=== PATIENT | male | born 1995 | race Caucasian/White ===

== ENCOUNTER 2025-01-17 10:23 | Outpatient (AMB) | payer OTHER, SELFPAY ==
--- NOTE | 2025-01-17 10:25 | A.OFFPC_ITS ---
Vital Signs 01/17/25 10:28 Height 5 ft 5.75 in Weight 180 lb 6 oz BMI 29.3 BP 116/78 Blood Pressure Location Lt brachial Position Sitting Respiration 12 Pulse 56 Pulse Source Pulse Oximeter Pulse Oximetry (%) 96 Oxygen Delivery Method Room Air Intake Visit Reasons: Est. Care Allergies No Known Allergies Allergy (Verified 01/17/25 10:27) Medication List - Last Reconciled 01/18/25 by Yennifer Lujan MD albuterol sulfate 90 mcg/actuation (Ventolin HFA) 2 puffs inhalation Q4-6H PRN Dental Screening Dental Screen Date: 01/17/25 Did you have a dental visit in the last 12 months?: Yes Did you have a dental problem in the last 6 months where you did not have access to dental care?: No Was dental information given to patient?: Patient has dentist HPI HPI Comments History of Present Illness Details 29 year old male with past medical histo ry of abnormal tfs presenting to [facility]. Transferring from [facility] Concerns: About 8 months ago did started getting shortness of breath with light activity. Chest getting tight.Denies reflux, heartburn. Denies anxiety. No calf swelling. Feels like cant get a deep breath. He had an abnormal PFTs performed a few years ago. 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 Recently had repeat PFTs with restrictive pattern. Mom has CHF-age 51. Paternal grandfather of [place] in 30s. he has no LE swelling. Is in good shape. Says he had EKG at [facility]. EKG here today is sinus bradycardia. No tobacco use ROS see HPI PHYSICAL EXAM: GENERAL: Alert and oriented x 3. NAD EYES: EOMI. Anicteric. HENT: Moist mucous membranes. No scleral icterus. No cervical lymphadenopathy. LUNGS: Clear to auscultation bilaterally. CARDIOVASCULAR: Regular rate and rhythm. No murmur. No JVD. ABDOMEN: Soft, non-tender +bs EXTREMITIES: No edema. Non-tender. SKIN: No rashes or lesions. Warm. NEUROLOGIC: No focal neurological deficits. CN II-XII grossly intact PSYCHIATRIC: Cooperative. Appropriate mood and affect [facility] Surgical History History of hernia surgery S/P ACL surgery Family History Mother Cardiovascular disease Thyroid disorder Thyroid cancer Maternal Grandfather Prostate cancer Paternal Grandfather Prostate cancer Cardiovascular disease Social History Housing: House Alcohol intake: current Patient Tobacco Use Status: Never used Tobacco service: Yes Current occupational status: employed Current occupation: [employer] Current occupational exposures/hazards: No Cognitive needs: No Hearing needs: No Vision needs: No Questionnaire PHQ-9 Over the last 2 weeks, how often have you been bothered by any of the following problems? 1. Little interest or pleasure in doing things: not at all 2. Feeling down, depressed, or hopeless: not at all 3. Trouble falling or staying asleep, or sleeping too much: not at all 4. Feeling tired or having little energy: not at all 5. Poor appetite or overeating: not at all 6. Feeling bad about yourself - or that you are a failure or have let yourself or your family down: not at all 7. Trouble concentrating on things, such as reading the newspaper or watching television: not at all 8. Moving or speaking so slowly that other people could have noticed. Or the opposite - being so fidgety or restless that you have been moving around a lot more than usual: not at all 9. Thoughts that you would be better off or of hurting yourself in some way: not at all Total score: 0 Depression Screening Interpretation: Negative Depression Screening Done: Yes 21202 - PHQ-9 Billing: Yes Source: Developed by Drs. Emiliano Velez, Payal Smallwood, Edi Lockwood and colleagues, with an educational alexsandra from [employer]. Thrive Questionnaire I am a: Patient What is your living situation today?: I have a steady place to live Within the past 12 months, did the food you bought not last and you didn't have the money to get more?: Never true Within the past 12 months, did you worry whether your food would run out before you got money to buy more?: Never true Do you have trouble paying for medicines?: No Do you have trouble getting transportation to medical appointments?: No Do you have trouble paying your heating and electricity bill?: No Do you have trouble taking care of your child, family member or friend?: No Do you have trouble with day-to-day activities such as bathing, preparing meals, shopping, managing finances, etc.?: No Are you currently unemployed and looking for a job?: No Are you interested in more education?: No Please select the resources that you would like help with: None Currently or been in a relationship where the following occur: No concerns reported THRIVE Score: 0 AUDIT C Alcohol Use Questionnaire (AUDIT-C) 1. How often do you have a drink containing alcohol?: 2-3 times a week 2. How many drinks containing alcohol do you have on a typical day when you are drinking?: 3 or 4 3. How often do you have six or more drinks on one occasion?: Monthly Total Score: 6 VIBHA-7 AMB Questionnaire VIBHA-7 Feeling nervous, anxious, or on edge: 0 = Not at all Not being able to stop or control worryin = Not at all Worrying too much about different things: 0 = Not at all Trouble relaxin = Not at all Being so restless that it is hard to sit still: 0 = Not at all Becoming easily annoyed or irritable: 0 = Not at all Feeling afraid as if something awful might happen: 0 = Not at all Total VIBHA-7 score (0-4 normal; 5-9 mild; 10-14 moderate; 15-21 severe): 0 Source: Developed by Drs. Emiliano Velez, Payal Smallwood, Edi Lockwood and colleagues, with an educational alexsandra from [employer]. Physical exam (Primary Care) Vital Signs: Last Vital Signs Pulse 56 01/17/25 10:28 Resp 12 01/17/25 10:28 BP 116/78 01/17/25 10:28 Pulse Ox 96 01/17/25 10:28 Oxygen Delivery Method Room Air 01/17/25 10:28 BMI result Body Mass Index 29.3 PHQ-9: PHQ-9 Score PHQ-9: Total score 0 01/18/25 14:19 Depression Screening Interpretation: Negative Currently or been in a relationship where the following occur: No concerns reported Coding Level of Care Code New Pt Level 4 (64117) Complex EM visit Add On G2211 Diagnoses Abnormal PFTs R94.2 Exertional dyspnea R06.09 Family history of due to heart problem at age younger than 50 years Z82.41 Additional Codes PHQ-9 - 77267 - PHQ-9 Billing: Yes ([id number]) Assessment & Plan Assessment & Plan (1) Abnormal PFTs: Code(s): R94.2 - Abnormal results of pulmonary function studies Category: Medical (2) Exertional dyspnea: Code(s): R06.09 - Other forms of dyspnea Category: Medical (3) Family history of due to heart problem at age younger than 50 years: Code(s): Z82.41 - Family history of sudden cardiac Category: Medical Plan 29 year old male to establish care Past medical, surgical, social and family history reviewed abnormal pfts, newer shortness of breath and chest pain Refer pulm. CXR ordered Trial albuterol Echo, stress ordered. Orders: Orders CA echo transthoracic complete 01/17/25 R06.09 - Other forms of dyspnea CA stress test 01/17/25 R07.9 - Chest pain, unspecified, Z82.41 - Family history of sudden cardiac Comprehensive Met. Panel 01/17/25 R06.09 - Other forms of dyspnea, Z13.0 - Encounter for screening for diseases of the blood and blood-forming organs and certain disorders involving the immune mechanism, Z13.228 - Encounter for screening for other metabolic disorders CRP High Sensitivity 01/17/25 R06.09 - Other forms of dyspnea, Z13.0 - Encounter for screening for diseases of the blood and blood-forming organs and certain disorders involving the immune mechanism, Z13.228 - Encounter for screening for other metabolic disorders XR chest 2V 01/17/25 R06.09 - Other forms of dyspnea, R94.2 - Abnormal results of pulmonary function studies ECG 12 lead EKG 01/17/25 R07.9 - Chest pain, unspecified Complete Blood Count Auto Diff 01/17/25 R06.09 - Other forms of dyspnea, Z13.0 - Encounter for screening for diseases of the blood and blood-forming organs and certain disorders involving the immune mechanism, Z13.228 - Encounter for screening for other metabolic disorders IRON PROFILE 01/17/25 R06.09 - Other forms of dyspnea, Z13.0 - Encounter for screening for diseases of the blood and blood-forming organs and certain disorders involving the immune mechanism, Z13.228 - Encounter for screening for other metabolic disorders Lipid Panel 01/17/25 R06.09 - Other forms of dyspnea, Z13.0 - Encounter for screening for diseases of the blood and blood-forming organs and certain disorders involving the immune mechanism, Z13.228 - Encounter for screening for other metabolic disorders TSH reflex Free T4 01/17/25 R06.09 - Other forms of dyspnea, Z13.0 - Encounter for screening for diseases of the blood and blood-forming organs and certain disorders involving the immune mechanism, Z13.228 - Encounter for screening for other metabolic disorders Referrals Pulmonology Referral R06.09 - Other forms of dyspnea, R94.2 - Abnormal results of pulmonary function studies Medications: New albuterol sulfate 90 mcg/actuation (Ventolin HFA) 2 puffs inhalation Q4-6H PRN 8.5 grams 3RF shortness of breath or wheezing
[2025-01-17 10:28] VITALS: BP 116/78; PULSE 56; RESP 12; O2SAT 96; BMI 29.3
== END 2025-01-17 11:26 | disposition home or self-care (01) ==
LOC: HO.HMCFM 10:24
PROVIDERS: PCP Internal Medicine; Visit Provider Internal Medicine
DX: R94.2 Abnormal results of pulmonary function studies (principal); R06.09 Other forms of dyspnea; Z82.41 Family history of sudden cardiac death

== ENCOUNTER → 2025-01-17 10:23 | Outpatient (BNVA) | payer OTHER, SELFPAY | PROVIDERS: PCP Internal Medicine; Visit Provider Internal Medicine | DX: R94.2 Abnormal results of pulmonary function studies (principal); R07.9 Chest pain, unspecified; R06.09 Other forms of dyspnea; Z82.41 Family history of sudden cardiac death | CPT/HCPCS: 96127 ==

== ENCOUNTER 2025-01-17 12:05 | Outpatient (REF) | payer OTHER, SELFPAY ==
[2025-01-17 14:59] LABS: MANUAL DIFF FLAG NO
[2025-01-17 15:10] LABS: Basophils Percent Auto 0.4 % (0-2); Eosinophils Absolute Auto 0.1 X10*3/uL (0.0-0.4); Eosinophils Percent Auto 1.4 % (0-4); Hematocrit 46.8 % (42.0-52.0); Hemoglobin 15.8 g/dl (14.0-18.0); Imm Gran Abs Auto 0.02 X10*3/uL (0.00-0.03); Imm Gran Pct Auto 0.4 % (0.0-0.4); Lymphocytes Absolute Auto 1.5 X10*3/uL (1.2-4.9); Lymphocytes Percent Auto 30.5 % (20-40); Mean Corpuscular HGB Conc 33.8 g/dl (31.0-36.0); Mean Corpuscular Hemoglobin 28.8 pg (27.0-33.0); Mean Corpuscular Volume 85.4 fL (80.0-98.0); Mean Platelet Volume 12.7 fL (9.4-12.4); Monocytes Absolute Auto 0.5 X10*3/uL (0.1-1.2); Monocytes Percent Auto 9.4 % (2-11); Neutrophils Absolute Auto 2.9 x10*3/uL (2.0-8.3); Neutrophils Percent Auto 57.9 % (45-73); Platelet Count 177 X10*3/uL (160-400); Red Blood Count 5.48 X10*6/uL (4.60-5.80)
[2025-01-17 17:24] LABS: Alanine Aminotransferase 31 U/L (0-40); Albumin Level 4.7 g/dL (3.5-5.0); Alkaline Phosphatase 68 U/L (39-117); Anion Gap 12 (12-20); Aspartate Amino Transferase 35 U/L (5-37); Bilirubin Total 0.6 mg/dL (0.0-1.0); Blood Urea Nitrogen 14 mg/dL (9-16); Calcium 9.6 mg/dL (8.4-10.2); Carbon Dioxide 28 mmol/L (22-29); Chloride 104 mmol/L (96-108); Cholesterol 198 mg/dL (<200); Estimated Glomerular Filt Rate > 60; Glucose Random 80 mg/dL (60-115); HDL Cholesterol 50 mg/dL (>40); Iron 140 mcg/dL (45-160); LDL Cholesterol Calculated 127 mg/dL (<100); Percent Iron Saturation 41 % (15-50); Potassium 4.2 mmol/L (3.3-5.1); Sodium 140 mmol/L (135-145); Total Iron Binding Capacity 338 mcg/dL (228-428); Total Protein 7.9 g/dL (6.5-8.0); Triglycerides 105 mg/dL (<150); Unsaturated Iron Binding 198 ug/dL
[2025-01-17 17:43] LABS: TSH reflex Free T4 0.61 uIU/mL (0.32-4.0)
[2025-01-18 07:38] LABS: CRP High Sensitivity 0.3 mg/L
== END 2025-01-17 12:06 | disposition home or self-care (01) ==
LOC: HO.WFDLDS 12:05
PROVIDERS: Visit Provider Internal Medicine
DX: R06.09 Other forms of dyspnea (principal); Z13.228 Encounter for screening for other metabolic disorders; Z13.0 Encounter for screening for diseases of the blood and blood-forming organs and certain disorders involving the immune mechanism
CPT/HCPCS: 36415; 80053; 80061; 83540; 84443; 85025; 86141

== ENCOUNTER → 2025-02-11 07:46 | Outpatient (REF) | payer OTHER, SELFPAY ==
--- NOTE | 2025-02-11 07:51 | CA_ITS ---
Transthoracic Echocardiogram Patient (Last, First, Middle): Waldo Hernandez S Gender: Male Date of : 1995 Age: 29 Procedure Date: 02/11/2025 Procedure Type: Transthoracic Echocardiogram Location: OP Height: 167. 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 The calculated ejection fraction is 58% by biplane method. - No obvious valvular pathology seen on this study. Findings Left Ventricle Normal left ventricular cavity size. There is normal left ventricular wall thickness. The left ventricular systolic function is normal. The calculated ejection fraction is 58% by biplane method. There is no evidence of regional wall motion abnormalities. Diastolic function is normal for age. Right Ventricle Mildly increased right ventricular cavity size. There is normal right ventricular systolic function. Atria Both atria are normal in size. Aortic Valve There is a normal trileaflet aortic valve. There is no aortic valve stenosis. There is no aortic valve regurgitation. Mitral Valve The mitral valve appears normal. There is trace mitral valve regurgitation. There is no mitral valve stenosis. Pulmonic Valve The pulmonic valve is likely normal. Tricuspid Valve There is mild tricuspid valve regurgitation. There is no evidence of pulmonary hypertension. Great Vessels The asc aorta and aortic arch are normal in size. Venous The inferior vena cava is normal in size and collapses greater than 50% with inspiration. Pericardium/Pleural There is no evidence of pericardial effusion. Prior Study Comparison No prior study available for comparison. Recommendations, Care & Conclusions No obvious valvular pathology seen on this study. Measurements 2D Linear Measurements IVSd: 0.91 0.6-0.9/0.6-1.0 cm LVIDd: 5.05 3.9-5.3/4.2-5.9 cm LVIDd Index: 2.64 2.4-3.2/2.2-3.1 cm/m2 LVIDs: 3.11 2.0-3.6 cm LVPWd: 0.98 0.7-1.1 cm LA Diam: 3.10 2.7-3.8/3.0-4.0 cm LAIDs Index: 1.62 1.5-2.3 cm/m2 LV Mass: 213.99 67-162/88-224 g LV Mass Index: 112.04 43-95/49-115 g/m2 LVOT Diam: 2.10 3.0+(-)1.3 cm 2D Systolic Function EF 4C: 57.60 >55% EF 2C: 59.40 >55% EF BiP: 57.50 >55% Mitral Valve MV Pk E: 0.94 MV PK A: 0.63 MV Decel Time: 275.00 E/A: 1.50 E'Lateral: 16.10 E'Medial: 11.30 E/E' Med: 8.30 E/E' Lat: 5.80 PHT: 80.00 MVA PHT: 2.75 Decel [place]: 3.41 Aortic Valve AoV Pk [place]: 1.15 AoV Mn [place]: 0.81 AoV VTI: 0.29 AoV Pk Grad: 5.00 Aov Mn Grad: 3.00 FRANCI Cont.VTI: 2.71 LVOT LVOT Pk [place]: 0.95 LVOT Mn [place]: 0.69 LVOT VTI: 0.22 LVOT Pk Grad: 4.00 LVOT Mn Grad: 2.00 LVOT Diam: 2.10 LVOT Area: 3.46 Diastolic Function MV Pk E: 0.94 MV Pk A: 0.63 E/A: 1.50 E'Medial: 11.30 E/E' Med: 8.30 E' Laterial: 16.10 E/E' Lat: 5.80 Right Ventricle TAPSE (mm): 23.50 TVS' [place]: 11.70 Tricuspid Valve TR Pk [place]: 1.83 TR Pk Grad: 13.00 RA Press: 3.00 RVSP: 16.00 Great Vessels Aorta Sinus of Valsalva: 3.50 2.0-3.5 cm Ao Asc: 3.10 2.1-3.4 cm Ao Arch: 2.70 Pulmonary Valve PV Pk [place]: 0.99 Peak PV Grad: 4.00 Updated in Other Vendor System with Status of Final Adalberto Swan MD electronically signed on 02/12/2025 11:37:51 AM with status of Final
--- NOTE | 2025-02-11 07:51 | ECG_ITS ---
Test Reason : R07.9 R06.09 Blood Pressure : */* mmHG Vent. Rate : 54 BPM Atrial Rate : 54 BPM P-R Int : 164 ms QRS Dur : 84 ms QT Int : 418 ms P-R-T Axes : 30 81 29 degrees QTcB Int : 396 ms Sinus bradycardia with sinus arrhythmia Otherwise normal ECG No previous ECGs available Referred By: Yennifer Lujan Electronically Signed By: RAVINDRA JONES
--- NOTE | 2025-02-11 07:51 | CA_ITS ---
Acquisition Time: 2025-02-11 08:47:40 Total Exercise Time: 00:10:56 Test Indications: SOB Medications: SEE H&P Protocol: SARAH Max HR: 166 BPM 86% of Pred: 192 BPM Max BP: 144/70 mmHG Max Work Load: 13.2 METS Exercise stress test with exercise 10 mins 56 secs of Sarah Protocol, achieving 86% MPHR, with reports of mild SOB, no chest pain, with sinus arrythmias in early recovery, with normotensive response to exercise. Without EKG changes meeting criteria for ischemia. In recovery, breathing quickly returned to baseline. Test reviewed with Dr. Swan. Referred By: Yennifer Lujan Electronically Signed By: Juan Francisco Prince
== END ==
LOC: HO.CARD 07:46
PROVIDERS: PCP Internal Medicine; Visit Provider Internal Medicine
DX: R07.9 Chest pain, unspecified (principal); R06.09 Other forms of dyspnea; Z82.41 Family history of sudden cardiac death
CPT/HCPCS: 93005; 93017; 93306

== ENCOUNTER → 2025-02-11 07:51 | Outpatient (BNV) | payer OTHER, SELFPAY | PROVIDERS: PCP Internal Medicine | DX: R06.09 Other forms of dyspnea (principal); I36.1 Nonrheumatic tricuspid (valve) insufficiency | CPT/HCPCS: 93016; 93018; 93320; 93350 ==

== ENCOUNTER 2025-04-25 09:00 | Outpatient (AMB) | payer OTHER, SELFPAY ==
--- NOTE | 2025-04-25 09:26 | MHC.PC.OV ---
Vital Signs 04/25/25 09:28 Height 5 ft 5.7 in Weight 180 lb BMI 29.3 BP 104/68 Blood Pressure Location Rt brachial Position Sitting Respiration 14 Pulse 69 Pulse Source Pulse Oximeter Pulse Oximetry (%) 99 Oxygen Delivery Method Room Air Intake Visit Reasons: f/up testing Intake Note: Follow up stress test and echo. 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 Transferring from [facility] Concerns addressed in December. No interval change About 8 months ago did started getting shortness of breath with light activity. Chest getting tight.Denies reflux, heartburn. Denies anxiety. No calf swelling. Feels like cant get a deep breath. He had an abnormal PFTs performed a few years ago. 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 Recently had repeat PFTs with restrictive pattern. Mom has CHF-age 51. Paternal grandfather of [place] in 30s. he has no LE swelling. Is in good shape. Says he had EKG at [facility]. EKG here today is sinus bradycardia. No tobacco use -Echocardiogram and stress test were completed and normal -He has an appointment this week with pulmonary -He will get his previously ordered chest xray performed today ROS see HPI PHYSICAL EXAM: GENERAL: Alert and oriented x 3. NAD EYES: EOMI. Anicteric. HENT: Moist mucous membranes. No scleral icterus. No cervical lymphadenopathy. LUNGS: Clear to auscultation bilaterally. CARDIOVASCULAR: Regular rate and rhythm. No murmur. No JVD. ABDOMEN: Soft, non-tender +bs EXTREMITIES: No edema. Non-tender. SKIN: No rashes or lesions. Warm. NEUROLOGIC: No focal neurological deficits. CN II-XII grossly intact PSYCHIATRIC: Cooperative. Appropriate mood and affect [facility] Surgical History History of hernia surgery S/P ACL surgery Family History Mother Cardiovascular disease Thyroid disorder Thyroid cancer Maternal Grandfather Prostate cancer Paternal Grandfather Prostate cancer Cardiovascular disease Social History (Updated 07/07/25 @ 09:32 by HUGO Carlin Housing: House Alcohol intake: current Patient Tobacco Use Status: Never used Tobacco e-Cigarette/Vaping Use: Never Used Second Hand Smoke Exposure: No Use of substances other than those prescribed or required for medical reasons: No service: Yes Current occupational status: employed 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 Current occupational exposures/hazards: No Cognitive needs: No Hearing needs: No Vision needs: No Questionnaire Thrive Questionnaire Date Thrive assessed: 01/17/25 I am a: Patient What is your living situation today?: I have a steady place to live Within the past 12 months, did the food you bought not last and you didn't have the money to get more?: Never true Within the past 12 months, did you worry whether your food would run out before you got money to buy more?: Never true Do you have trouble paying for medicines?: No Do you have trouble getting transportation to medical appointments?: No Do you have trouble paying your heating and electricity bill?: No Do you have trouble taking care of your child, family member or friend?: No Do you have trouble with day-to-day activities such as bathing, preparing meals, shopping, managing finances, etc.?: No Are you currently unemployed and looking for a job?: No Are you interested in more education?: No Please select the resources that you would like help with: None Currently or been in a relationship where the following occur: No concerns reported THRIVE Score: 0 AUDIT C Alcohol Use Questionnaire (AUDIT-C) 1. How often do you have a drink containing alcohol?: Monthly or less 2. How many drinks containing alcohol do you have on a typical day when you are drinking?: 1 or 2 3. How often do you have six or more drinks on one occasion?: Never Total Score: 1 Physical exam (Primary Care) Vital Signs: Last Vital Signs Pulse 69 04/25/25 09:28 Resp 14 04/25/25 09:28 BP 104/68 04/25/25 09:28 Pulse Ox 99 04/25/25 09:28 Oxygen Delivery Method Room Air 04/25/25 09:28 BMI result Body Mass Index 29.3 Tobacco/Smoking Status: Tobacco use Status Tobacco use date assessed 04/25/25 04/25/25 09:32 Patient Tobacco Use Status Never used Tobacco 04/25/25 09:32 e-Cigarette/Vaping Use Never Used 04/25/25 09:32 Thrive Assessment: Date of Thrive Assessment Date Thrive assessed 01/17/25 04/25/25 09:31 Currently or been in a relationship where the following occur: No concerns reported Coding Level of Care Code Est Pt Level 3 (43209) Complex EM visit Add On G2211 Diagnoses Exertional dyspnea R06.09 Abnormal PFTs R94.2 Assessment & Plan Assessment & Plan (1) Exertional dyspnea: Code(s): R06.09 - Other forms of dyspnea Category: Medical (2) Abnormal PFTs: Code(s): R94.2 - Abnormal results of pulmonary function studies Category: Medical Plan Exertional dypsnea, abnormal PFTs Xray today Pulmonary visit this week Reviewed cardiac testing
[2025-04-25 09:28] VITALS: BP 104/68; PULSE 69; RESP 14; O2SAT 99; BMI 29.3
== END 2025-04-25 09:46 | disposition home or self-care (01) ==
LOC: HO.HMCFM 09:01
PROVIDERS: PCP Internal Medicine; Visit Provider Internal Medicine
DX: R06.09 Other forms of dyspnea (principal); R94.2 Abnormal results of pulmonary function studies

== ENCOUNTER 2025-04-25 09:00 | Outpatient (REF) | payer OTHER, SELFPAY ==
--- NOTE | ~2025-04-25 | XR_ITS ---
EXAMINATION: XR CHEST CLINICAL INFORMATION: R06.09 - Other forms of dyspnea COMPARISON: 03/07/2021, 12/27/2019. TECHNIQUE: 2 views of the chest were obtained. FINDINGS: The cardiac, hilar, and mediastinal contours are normal. The lungs are clear bilaterally. There is no pneumothorax or pleural effusion. There is no focal osseous or soft tissue abnormality. XR/XR chest 2V IMPRESSION: No active pulmonary disease. Electronically signed by: Manpreet Nuñez MD 04/25/2025 11:28 AM EDT
== END 2025-04-25 09:01 | disposition home or self-care (01) ==
LOC: HO.XRAY 09:00
PROVIDERS: PCP Internal Medicine; Visit Provider Internal Medicine
DX: R94.2 Abnormal results of pulmonary function studies (principal); R06.09 Other forms of dyspnea
CPT/HCPCS: 71046

== ENCOUNTER → 2025-04-25 10:21 | Outpatient (BNV) | payer OTHER, SELFPAY | PROVIDERS: PCP Internal Medicine; Visit Provider Radiology Diagnostic Radiology | DX: R06.09 Other forms of dyspnea (principal) | CPT/HCPCS: 71046 ==

== ENCOUNTER 2025-04-27 13:10 | Outpatient (AMB) | payer OTHER, SELFPAY ==
--- NOTE | 2025-04-27 13:12 | MHC.OFFVIS ---
Vital Signs 04/27/25 13:13 Height 5 ft 5.7 in Weight 181 lb 6 oz BMI 29.5 BP 110/52 L Blood Pressure Location Rt brachial Position Sitting Pulse 71 Pulse Source Pulse Oximeter Pulse Oximetry (%) 97 Oxygen Delivery Method Room Air Intake Visit Reasons: Abnormal results of pulmonary function studies Allergies No Known Allergies Allergy (Verified 04/27/25 13:15) HPI HPI Abnormal results of pulmonary function studies: Details: Waldo is a pleasant 29-year-old male, never smoker, with no significant past medical history. He was referred by PCP for pulmonary evaluation, presenting with symptoms suggestive of asthma. He reports experiencing chest tightness and dyspnea for approximately eight months. The symptoms occur even with minimal exertion, such as walking upstairs, and occasionally require him to rest with associated chest tightness. He denies cough or wheezing. The patient denies any history of asthma or recurrent respiratory infections, but reports secondhand smoke exposure as a child. He also notes prolonged cough after URI in the past. He denies seasonal allergies. Denies triggers other than activity. He has been prescribed albuterol, which he uses every other day, but reports it provides minimal relief. The patient has no significant family history of respiratory conditions and denies exposure to occupational hazards. 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 He did undergo spirometry through [facility] which revealed mild obstructive defect with FEV1/FVC 72.6, FEV1 3.52 and FVC 4.30. 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 Current occupational exposures/hazards: No Cognitive needs: No Hearing needs: No Vision needs: No Review of Systems Const Denies chills, Denies excessive sweating, Denies fever(s), Denies headache(s) and Denies night sweats Eyes Denies dry eyes, Denies irritation and Denies itchy eyes ENT Reports Normal hearing present, Denies headache(s), Denies nasal congestion, Denies nasal discharge, Denies post nasal drip and Denies sore throat Card Denies chest pain, Denies chest pain at rest, Denies chest pain with activity, Denies claudication, Denies leg edema, Denies orthopnea and Denies paroxysmal nocturnal dyspnea Resp Denies chest congestion, Denies cough, Denies excessive phlegm production, Denies pain on inspiration, Denies pain with cough, Denies stridor and Denies wheezing Musc Denies myalgias Neuro Reports Normal hearing present and Denies headache(s) Endo Denies excessive sweating Khang/Lymph Denies lymphadenopathy Aller/Immun Denies itchy eyes, Denies seasonal rhinorrhea and Denies wheezing Physical Exam Vital Signs: Last Vital Signs Pulse 71 04/27/25 13:13 BP 110/52 L 04/27/25 13:13 Pulse Ox 97 04/27/25 13:13 Oxygen Delivery Method Room Air 04/27/25 13:13 BMI result Body Mass Index 29.5 Const General: cooperative, healthy appearing, comfortable, no acute distress, well developed and alert Orientation/consciousness: patient oriented x3 Limitations: no limitations HEENT Head: Yes normal to inspection, Yes normocephalic and Yes atraumatic Ears: hearing grossly normal bilaterally and external ears normal Eyes General: appearance normal, both eyes and all related structures Eyelids: Yes eyelids normal Sclerae: sclerae normal EOM: EOMs intact bilaterally Neck Neck: Yes normal visual inspection and Yes no lymphadenopathy Lymphatic: no lymphadenopathy noted Chest Chest palpation & inspection: normal inspection of the chest Resp Effort & Inspection: normal respiratory effort, able to speak in complete sentences, no audible wheezes, no cough, no stridor, not tachypneic, no tripod positioning and no use of accessory muscles Auscultation: clear to auscultation bilaterally Cardio Jugular venous distension: no JVD Rate: regular rate Rhythm: regular rhythm Skin Other: warm, dry General skin exam: no rashes or lesions noted Neuro General: patient oriented x3 Cranial nerves: Yes Normal hearing present Cognition (Neuro): normal cognition Gait exam (Neuro): Normal gait present Extrem General: Yes normal to inspection, Yes capillary refill normal, Yes no clubbing, cyanosis or edema and Yes no pedal edema Psych Appearance: grossly normal and well kempt Speech and movement: Normal speech and movement present and Clear speech present Affect: normal affect Attitude: cooperative Thought process: Normal thought process present Thought content: Normal thought content present Insight: Good insight present (Psych) Judgement: Good judgement present (Psych) Assessment & Plan Assessment & Plan (1) Asthma: Code(s): J45.909 - Unspecified asthma, uncomplicated Category: Medical Plan Waldo's clinical symptoms are suggestive of asthma with associated chest tightness and dyspnea. A full pulmonary function test will be scheduled to confirm the diagnosis, assessing lung volumes and diffusion capacity. In the interim, the patient will start on a maintenance inhaler containing a long-acting bronchodilator and inhaled steroid, to be used daily. The patient is advised to rinse his mouth after use to prevent oral thrush. All questions were answered and patient is in agreement of plan. Will follow up in six to eight weeks to assess symptom improvement and inhaler efficacy. Orders: Orders PFT pulmonary function test Today J45.909 - Unspecified asthma, uncomplicated Medications: New fluticasone furoate-vilanterol 100-25 mcg/dose (Breo Ellipta) 1 inh inhalation DAILY 60 ea 3RF Coding Level of Care Code New Pt Level 3 (86196) Diagnoses Asthma J45.909
[2025-04-27 13:13] VITALS: BP 110/52; PULSE 71; O2SAT 97; BMI 29.5
== END 2025-04-27 13:36 | disposition home or self-care (01) ==
LOC: HO.HPSW 13:10
PROVIDERS: PCP Internal Medicine; Visit Provider Nurse Practitioner Family
DX: J45.909 Unspecified asthma, uncomplicated (principal)
CPT/HCPCS: 99203

== ENCOUNTER 2025-06-10 15:40 | Outpatient (AMB) | payer OTHER, SELFPAY ==
[2025-06-10 15:42] VITALS: BP 98/56; PULSE 60; O2SAT 95; BMI 28.8
--- NOTE | 2025-06-10 15:42 | A.OFFVIS_ITS ---
Vital Signs 06/10/25 15:42 Height 5 ft 5.7 in Weight 177 lb 2 oz BMI 28.8 BP 98/56 L Blood Pressure Location Rt brachial Position Sitting Pulse 60 Pulse Source Pulse Oximeter Pulse Oximetry (%) 95 Oxygen Delivery Method Room Air Intake Visit Reasons: Abnormal results of pulmonary function studies Allergies No Known Allergies Allergy (Verified 06/10/25 15:45) HPI HPI Abnormal results of pulmonary function studies: Details: Waldo is a pleasant 29-year-old male, never smoker, with no significant past medical history. He was initially referred by PCP for pulmonary evaluation, presenting with symptoms suggestive of asthma. He reports experiencing chest tightness and dyspnea for approximately eight months. He did undergo spirometry through [facility] which revealed mild obstructive defect with FEV1/FVC 72.6, FEV1 3.52 and FVC 4.30. At the last visit, he was started on Breo unfortunately due to issues at the pharmacy he was only able to obtain Breo one week ago. He notes initial response however not sustained and continues to report chest tightness and dyspnea with moderate exertion, using albuterol MDI frequently. Denies cough or wheezing. Denies any visits to urgent care or hospitalizations related to respiratory distress since the last visit. Of note, he has a PFT scheduled next month. 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 Current occupational exposures/hazards: No Cognitive needs: No Hearing needs: No Vision needs: No Review of Systems Const Denies chills, Denies excessive sweating, Denies fever(s), Denies headache(s) and Denies night sweats Eyes Denies dry eyes, Denies irritation and Denies itchy eyes ENT Reports Normal hearing present, Denies headache(s), Denies nasal congestion, Denies nasal discharge, Denies post nasal drip and Denies sore throat Card Denies chest pain, Denies chest pain at rest, Denies chest pain with activity, Denies claudication, Denies leg edema, Denies orthopnea and Denies paroxysmal nocturnal dyspnea Resp Denies chest congestion, Denies cough, Denies excessive phlegm production, Denies pain on inspiration, Denies pain with cough, Denies stridor and Denies wheezing Musc Denies myalgias Neuro Reports Normal hearing present and Denies headache(s) Endo Denies excessive sweating Khang/Lymph Denies lymphadenopathy Aller/Immun Denies itchy eyes, Denies seasonal rhinorrhea and Denies wheezing Physical Exam Vital Signs: Last Vital Signs Pulse 60 06/10/25 15:42 BP 98/56 L 06/10/25 15:42 Pulse Ox 95 06/10/25 15:42 Oxygen Delivery Method Room Air 06/10/25 15:42 BMI result Body Mass Index 28.8 Const General: cooperative, healthy appearing, comfortable, no acute distress, well developed and alert Orientation/consciousness: patient oriented x3 Limitations: no limitations HEENT Head: Yes normal to inspection, Yes normocephalic and Yes atraumatic Ears: hearing grossly normal bilaterally and external ears normal Eyes General: appearance normal, both eyes and all related structures Eyelids: Yes eyelids normal Sclerae: sclerae normal EOM: EOMs intact bilaterally Neck Neck: Yes normal visual inspection and Yes no lymphadenopathy Lymphatic: no lymphadenopathy noted Chest Chest palpation & inspection: normal inspection of the chest Resp Effort & Inspection: normal respiratory effort, able to speak in complete sentences, no audible wheezes, no cough, no stridor, not tachypneic, no tripod positioning and no use of accessory muscles Auscultation: diminished lung sounds Cardio Jugular venous distension: no JVD Rate: regular rate Rhythm: regular rhythm Skin Other: warm, dry General skin exam: no rashes or lesions noted Neuro General: patient oriented x3 Cranial nerves: Yes Normal hearing present Cognition (Neuro): normal cognition Gait exam (Neuro): Normal gait present Extrem General: Yes normal to inspection, Yes capillary refill normal, Yes no clubbing, cyanosis or edema and Yes no pedal edema Psych Appearance: grossly normal and well kempt Speech and movement: Normal speech and movement present and Clear speech present Affect: normal affect Attitude: cooperative Thought process: Normal thought process present Thought content: Normal thought content present Insight: Good insight present (Psych) Judgement: Good judgement present (Psych) Assessment & Plan Assessment & Plan (1) Asthma: Code(s): J45.909 - Unspecified asthma, uncomplicated Category: Medical Plan Encouraged Waldo to continue to use Breo for another 1-2 weeks. If he continues with suboptimal effect he is aware to call and will increase the dose. He has a PFT scheduled next month and will follow up to review results or sooner if needed. All questions were answered and patient is in agreement of plan. Coding Level of Care Code Est Pt Level 3 (37903) Diagnoses Asthma J45.909
== END 2025-06-10 15:56 | disposition home or self-care (01) ==
LOC: HO.HPSW 15:41
PROVIDERS: PCP Internal Medicine; Visit Provider Nurse Practitioner Family
DX: J45.909 Unspecified asthma, uncomplicated (principal)
CPT/HCPCS: 99213

== ENCOUNTER 2025-07-13 15:42 | Outpatient (REF) | payer OTHER, SELFPAY ==
--- NOTE | 2025-07-13 15:45 | PFT_ITS ---
Flows: FEV1: 90 % of predicted at 3.54 L FVC: 90 % of predicted at 4.22 L FEV1/FVC: 84 % Bronchodilator response: Absent Volumes: Total lung capacity: 81 % of predicted at 4.96 L Residual volume: 67 % of predicted at 0.87 L Slow vital capacity: 85 % of predicted at 4.09 L Expiratory reserve volume: 69 % of predicted at 0.97 L Diffusion capacity: Normal Impression: No obstructive or restrictive ventilatory defect. No bronchodilator response. Normal pulmonary function test. MTDD
[2025-07-13 16:33] VITALS: PULSE 73; O2SAT 97
== END 2025-07-13 15:43 | disposition home or self-care (01) ==
LOC: HO.RESP 15:42
PROVIDERS: PCP Internal Medicine; Visit Provider Nurse Practitioner Family
DX: J45.909 Unspecified asthma, uncomplicated (principal)
CPT/HCPCS: 94010; 94640; 94727; 94729

== ENCOUNTER → 2025-07-13 15:45 | Outpatient (BNV) | payer OTHER, SELFPAY | PROVIDERS: PCP Internal Medicine; Visit Provider Internal Medicine Pulmonary Disease | DX: J45.909 Unspecified asthma, uncomplicated (principal) | CPT/HCPCS: 94060; 94727; 94729 ==

== ENCOUNTER 2025-08-31 13:11 | Outpatient (AMB) | payer OTHER, SELFPAY ==
--- NOTE | 2025-08-31 13:06 | A.OFFVIS_ITS ---
Vital Signs 08/31/25 13:28 Height 5 ft 5.7 in Weight 181 lb 6 oz BMI 29.5 BP 110/66 Blood Pressure Location Rt brachial Position Sitting Pulse 70 Pulse Source Pulse Oximeter Pulse Oximetry (%) 99 Oxygen Delivery Method Room Air Intake Visit Reasons: Asthma Allergies No Known Allergies Allergy (Verified 08/31/25 13:31) HPI HPI Asthma: Details: Waldo is a pleasant 29-year-old male, never smoker, with no significant past medical history. He was initially referred by PCP for pulmonary evaluation, presenting with symptoms suggestive of asthma. He reports experiencing chest tightness and dyspnea for approximately eight months. He did undergo spirometry [facility] which revealed mild obstructive defect with FEV1/FVC 72.6, FEV1 3.52 and FVC 4.30. Today he presents to review full PFT. Since the last visit he was been using Breo on a daily basis for 3 weeks however began to develop c hest tightness, worsening dyspnea and wheezing after use, possibly related to the DPI although he also reports pleuritic discomfort. Prior CXR unremarkable. He has been using Albuterol MDI 2-3 times per day with good effect, usually prior to activity. Denies cough, chest congestion, fevers or chills. Denies any visits to urgent care or hospitalizations related to respiratory distress since the last visit. 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 Current occupational exposures/hazards: No Cognitive needs: No Hearing needs: No Vision needs: No Review of Systems Const Denies chills, Denies excessive sweating, Denies fever(s), Denies headache(s) and Denies night sweats Eyes Denies dry eyes, Denies irritation and Denies itchy eyes ENT Reports Normal hearing present, Denies headache(s), Denies nasal congestion, Denies nasal discharge, Denies post nasal drip and Denies sore throat Card Denies claudication, Denies leg edema, Reports dyspnea on exertion, Denies orthopnea and Denies paroxysmal nocturnal dyspnea Resp Denies change in phlegm color, Denies chest congestion, Denies cough, Denies hemoptysis, Denies excessive phlegm production, Denies pain on inspiration, Denies pain with cough, Reports dyspnea on exertion, Denies stridor and Reports wheezing Musc Denies myalgias Neuro Reports Normal hearing present and Denies headache(s) Endo Denies excessive sweating Khang/Lymph Denies lymphadenopathy Aller/Immun Denies itchy eyes, Denies seasonal rhinorrhea and Reports wheezing Physical Exam Vital Signs: Last Vital Signs Pulse 70 08/31/25 13:28 BP 110/66 08/31/25 13:28 Pulse Ox 99 08/31/25 13:28 Oxygen Delivery Method Room Air 08/31/25 13:28 BMI result Body Mass Index 29.5 Const General: cooperative, healthy appearing, comfortable, no acute distress, well developed and alert Orientation/consciousness: patient oriented x3 Limitations: no limitations HEENT Head: Yes normal to inspection, Yes normocephalic and Yes atraumatic Ears: hearing grossly normal bilaterally and external ears normal Eyes General: appearance normal, both eyes and all related structures Eyelids: Yes eyelids normal Sclerae: sclerae normal EOM: EOMs intact bilaterally Neck Neck: Yes normal visual inspection and Yes no lymphadenopathy Lymphatic: no lymphadenopathy noted Chest Chest palpation & inspection: normal inspection of the chest Resp Effort & Inspection: normal respiratory effort, able to speak in complete sentences, no audible wheezes, no cough, no stridor, not tachypneic, no tripod positioning and no use of accessory muscles Auscultation: diminished lung sounds Cardio Jugular venous distension: no JVD Rate: regular rate Rhythm: regular rhythm Skin Other: warm, dry General skin exam: no rashes or lesions noted Neuro General: patient oriented x3 Cranial nerves: Yes Normal hearing present Cognition (Neuro): normal cognition Gait exam (Neuro): Normal gait present Extrem General: Yes normal to inspection, Yes capillary refill normal, Yes no clubbing, cyanosis or edema and Yes no pedal edema Psych Appearance: grossly normal and well kempt Speech and movement: Normal speech and movement present and Clear speech present Affect: normal affect Attitude: cooperative Thought process: Normal thought process present Thought content: Normal thought content present Insight: Good insight present (Psych) Judgement: Good judgement present (Psych) Assessment & Plan Assessment & Plan (1) Asthma: Code(s): J45.909 - Unspecified asthma, uncomplicated Category: Medical (2) Pleuritic pain: Code(s): R07.81 - Pleurodynia Category: Medical Plan Reviewed PFT which revealed no obstructive or restrictive ventilatory defect. No bronchodilator response. Normal pulmonary function test, although patient was unable to reproduce maneuvers per RT documentation, so likely some inaccuracies in results. Encouraged patient to trial Symbicort as symptoms patient developed after Breo may be related to powder. Will also send for ddimer given pleuritic discomfort, although low likelihood of PE as well as chest CT to assess for any underlying parenchymal condition contributing to symptoms. All qu estions were answered and patient is in agreement of plan. Will follow up to review results or sooner if needed. Orders: Orders D Dimer High Sensitivity Today R07.81 - Pleurodynia CT chest wo IV con Today R07.81 - Pleurodynia Medications: New budesonide-formoterol 80-4.5 mcg/actuation (Symbicort) 1 inh inhalation Q12H 10.2 grams 3RF Refilled albuterol sulfate 90 mcg/actuation (Ventolin HFA) 2 puffs inhalation Q4-6H PRN 1 ea 3RF shortness of breath or wheezing Discontinued fluticasone furoate-vilanterol 100-25 mcg/dose (Breo Ellipta) Discontinued Reason: Patient Completed Course 1 inh inhalation DAILY 60 ea 3RF Coding Level of Care Code Est Pt Level 4 (66988) Diagnoses Asthma J45.909 Pleuritic pain R07.81
[2025-08-31 13:28] VITALS: BP 110/66; PULSE 70; O2SAT 99; BMI 29.5
== END 2025-08-31 13:49 | disposition home or self-care (01) ==
LOC: HO.HPSW 13:12
PROVIDERS: PCP Internal Medicine; Visit Provider Nurse Practitioner Family
DX: J45.909 Unspecified asthma, uncomplicated (principal); R07.81 Pleurodynia
CPT/HCPCS: 99214

== ENCOUNTER 2025-10-10 09:44 | Outpatient (REF) | payer OTHER, SELFPAY ==
--- NOTE | ~2025-10-10 | CT_ITS ---
EXAMINATION: CT CHEST WITHOUT IV CONTRAST INDICATION: R07.81 - Pleurodynia COMPARISON: Correlation is made with PA and lateral views of the chest dated 04/25/2025. TECHNIQUE: Helical CT scan of the chest was performed without intravenous contrast. Coronal and sagittal reformatted images were generated and reviewed. This CT exam was performed with one or more of the following dose reduction techniques: automated exposure control, adjustment of the mA and/or kV according to patient size, use of iterative reconstruction technique. DLP: 321 mGy-cm CHEST: THYROID: The thyroid is unremarkable. LUNGS: A 3 mm nodule along the right minor fissure (series 6, image 72) is consistent with an intrapulmonary lymph node. There are no suspicious pulmonary nodules. No airspace opacities are identified. MEDIASTINUM: There is no mediastinal lymphadenopathy. JEOVANY: Evaluation of the hilar regions is limited by lack of intravenous contrast material. CARDIOVASCULATURE: The heart is normal in size. There is no pericardial effusion. The thoracic aorta is normal in caliber. DEGREE OF CORONARY CALCIFICATION: none PLEURA: There is no pleural effusion. No pneumothorax. MAIN AIRWAYS: The mainstem bronchi and proximal branches are patent. AXILLA: There is no axillary lymphadenopathy. BONES AND SOFT TISSUES: Unremarkable UPPER ABDOMEN: The visualized portions of the liver, spleen, and adrenals have an unremarkable unenhanced appearance. CT/CT chest wo IV con IMPRESSION: Unremarkable unenhanced CT of the chest. Electronically signed by: Emiliano Cook MD 10/10/2025 10:56 AM [facility] [place]
[2025-10-10 10:25] LABS: MANUAL DIFF FLAG NO
[2025-10-10 10:45] LABS: Hematocrit 45.5 % (42.0-52.0); Hemoglobin 15.4 g/dl (14.0-18.0); Imm Gran Abs Auto 0.04 X10*3/uL (0.00-0.03); Imm Gran Pct Auto 0.7 % (0.0-0.4); Lymphocytes Absolute Auto 1.7 X10*3/uL (1.2-4.9); Mean Corpuscular HGB Conc 33.8 g/dl (31.0-36.0); Mean Corpuscular Hemoglobin 28.6 pg (27.0-33.0); Mean Corpuscular Volume 84.6 fL (80.0-98.0); NRBC Abs Auto 0.000 X10*3/uL (0.0-0.012); NRBC Pct Auto 0.0 /100WBC (0.0-0.2); Platelet Count 220 X10*3/uL (160-400); Red Blood Count 5.38 X10*6/uL (4.60-5.80); White Blood Count 5.3 X10*3/uL (4.8-10.8)
[2025-10-10 10:54] LABS: D Dimer High Sensitivity < 150 NG/ML
== END 2025-10-10 09:45 | disposition home or self-care (01) ==
LOC: HO.CT 09:44
PROVIDERS: PCP Internal Medicine; Visit Provider Nurse Practitioner Family
DX: R07.81 Pleurodynia (principal); R06.09 Other forms of dyspnea
CPT/HCPCS: 36415; 71250; 85025; 85379

== ENCOUNTER → 2025-10-10 09:46 | Outpatient (BNV) | payer OTHER, SELFPAY | PROVIDERS: PCP Internal Medicine; Visit Provider Radiology Diagnostic Radiology | DX: R07.81 Pleurodynia (principal) | CPT/HCPCS: 71250 ==